=== PATIENT | female | born 1955 | race Caucasian/White ===

== ENCOUNTER 2019-01-26 04:46 | Observation (INO) | payer OTHER ==
[~2019-01-26] VITALS: Ht 165.1 cm; Wt 69.9 kg
[2019-01-26 04:56] VITALS: BP 149/63
[2019-01-26] MEDS ORDERED: COUMADIN 2 MG TA2 M1 PO (05:04)
[2019-01-26] MEDS ORDERED: COUMADIN 4 MG TA4 M1 PO (05:04)
[2019-01-26] MEDS ORDERED: CELEXA20 MG PO (05:05)
[2019-01-26] MEDS ORDERED: ATORVASTATIN CA40 MG PO (05:06)
[2019-01-26] MEDS ORDERED: KEPPRA750 MG PO (05:07)
[2019-01-26] MEDS ORDERED: ASPIR 8181 MG PO (05:07)
[2019-01-26] MEDS ORDERED: LOPRESSOR50 PO (05:07)
[2019-01-26] MEDS ORDERED: SYNTHROID125 MC1 PO (05:08)
[2019-01-26] MEDS ORDERED: FOSAMAX 70 MG T70 MG PO (05:09)
[2019-01-26 05:19] LABS: ABSOLUTE EOSINOPHILS 0.3 thou/uL (0.0-0.7); ABSOLUTE LYMPHOCYTES 1.1 thou/uL (0.8-5.3); ABSOLUTE MONOCYTES 0.3 thou/uL (0.0-1.2); ABSOLUTE NEUTROPHILS 3.1 thou/uL (1.6-8.1); BASOPHILS 0.9 %; HEMATOCRIT 37.9 % (37.0-47.0); HEMOGLOBIN 12.9 gm/dL (12.0-15.0); LYMPHOCYTES 22.2 %; MCH 32.6 pg (26.0-34.0); MCV 96.1 fL (80.0-100.0); MONOCYTES 5.8 %; MPV 7.9 fl. (7.2-11.1); NUCLEATED RBCS 0 /100WBC; PLATELET COUNT* 196 thou/uL (150-400); POLYS 64.1 %; RBC 3.94 mil/uL (4.20-5.00); RDW-CV 13.6 % (10.5-14.5); WBC 4.9 thou/uL (4.0-11.0)
[2019-01-26 05:30] LABS: INR 1.7; PROTIME 17.4 Seconds (9.20-11.50)
[2019-01-26 05:40] LABS: ANION GAP 9 mmol/L (7-16); BUN 22 mg/dL (7-18); CHLORIDE 106 mmol/L (98-107); CO2 27 mmol/L (21-32); CREATININE 0.7 mg/dL (0.6-1.3); GLUCOSE 102 mg/dL (70-99); POTASSIUM 3.6 mmol/L (3.5-5.1); SODIUM 142 mmol/L (136-145)
[2019-01-26 05:44] LABS: ALBUMIN 3.2 g/dL (3.4-5.0); ALKALINE PHOSPHATASE 69 U/L (46-116); MAGNESIUM 1.8 mg/dL (1.8-2.4); SGOT 18 U/L (15-37); SGPT 15 U/L (30-65); TOTAL BILIRUBIN 0.6 mg/dL (<0.1-1.0); TOTAL PROTEIN 7.1 g/dL (6.4-8.2); TROPONIN-I LEVEL <0.06 ng/mL (<0.06)
[2019-01-26 06:46] LABS: URINE BILIRUBIN NEGATIVE (Negative); URINE BLOOD 1+ (Negative); URINE CLARITY CLEAR; URINE COLOR YELLOW; URINE GLUCOSE-RANDOM NEGATIVE (Negative); URINE KETONES NEGATIVE (Negative); URINE LEUKOCYTES TRACE (Negative); URINE NITRITE POSITIVE (Negative); URINE PROTEIN TRACE (Negative); URINE SPECIFIC GRAVITY >= 1.030 (1.005-1.030); URINE UROBILINOGEN 0.2 E.U./dl (0.2-1.0)
[2019-01-26 06:54] LABS: BACTERIA >30 Many /HPF (None Seen); CASTS None Seen /LPF (None Seen); CRYSTALS None Seen /LPF (None Seen); MUCUS 0-3 Light strn/LPF (None Seen); SQUAMOUS 0-3 Few /LPF (0-3); URINE RBC 0-2 Rare /HPF (0-2); URINE WBC 6-15 Few /HPF (0-5)
--- NOTE | 2019-01-26 09:52 | NUR ---
UPON GIVING THE PATIENT HER HOME MEDICATIONS, SHE STATES THAT SHE TAKES THE CITALOPRAM, ATORVASTATIN AND ASPIRIN AT NIGHT. PILLS ARE IN ZIPLOCK BAG AND PLACED ON PT'S CLIPBOARD.
[2019-01-26 11:00] VITALS: BP 151/73
[2019-01-26 15:43] VITALS: BP 136/74
[2019-01-26 16:30] VITALS: BP 119/63
[2019-01-26 16:35] VITALS: BP 136/74
[2019-01-26] MEDS ORDERED: CALCIUM 500 +1 EAC5 PO (17:14)
--- NOTE | 2019-01-26 18:09 | NUR ---
PT ADMITTED TO ROOM 226 VIA CART FROM ED AT APPROXIMATELY 1630 WITH BRADYCARDIA AND RIGHT ARM PAIN. PT ORIENTED TO ROOM AND CALL LIGHT. ADMISSION ASSESSMENT AND HISTORY COMPLETED. REFER TO CHARTING. MEDICARE AND FALL AGREEMENT SIGNED AND PLACED IN CHART. SEPSIS SCREENING COMPLETED- PT NEGATIVE. PT A&0X4, COMPLAINS OF PAIN TO RIGHT ARM- THUMB AND ELBOW SPECIFICALLY. TREATED WITH PRN TYLENOL WITH PARTIAL RELIEF. PT TRACING SB ON THE RN IMCU. RATE IN THE LOW 50'S. ON RA SAT UPPER 90'S. PT UP WITH 1 ASSIST AND CANE TO BATHROOM. LUE NOTED TO BE FLACCID FROM PREVIOUS STROKE. LLE WEAKNESS NOTED. PT SIGNIFICANT OTHER AT BEDSIDE. PT AND SIGNIFICANT OTHER ARE FROM [place] AND IN [facility] VISITING FOR A GRADUATION. MEDICATIONS PER NOV. PT REPOSITIONS SELF WITH REMINDERS. HOURLY ROUNDING OBSERVED. BED IN LOW POSITION. BED ALARM IN PLACE. FALL PRECAUTIONS IN PLACE. CALL LIGHT WITHIN REACH. WILL CONTINUE PLAN OF CARE.
[2019-01-26 19:50] VITALS: BP 126/67
[2019-01-27] VITALS: BP 129/64
[2019-01-27 04:00] VITALS: BP 125/68
[2019-01-27 04:54] LABS: CALCIUM 9.1 mg/dL (8.5-10.1); CREATININE 0.8 mg/dL (0.6-1.3); POTASSIUM 3.8 mmol/L (3.5-5.1)
[2019-01-27 04:57] LABS: ABSOLUTE EOSINOPHILS 0.3 thou/uL (0.0-0.7); ABSOLUTE LYMPHOCYTES 1.1 thou/uL (0.8-5.3); ABSOLUTE MONOCYTES 0.2 thou/uL (0.0-1.2); ABSOLUTE NEUTROPHILS 2.8 thou/uL (1.6-8.1); BASOPHILS 0.9 %; EOSINOPHILS 6.3 %; HEMATOCRIT 38.1 % (37.0-47.0); MCH 32.8 pg (26.0-34.0); MCHC 34.1 g/dL (28.0-37.0); MONOCYTES 5.1 %; MPV 8.4 fl. (7.2-11.1); NUCLEATED RBCS 0 /100WBC; PLATELET COUNT* 194 thou/uL (150-400); POLYS 63.7 %; RBC 3.97 mil/uL (4.20-5.00); RDW-CV 13.6 % (10.5-14.5); WBC 4.4 thou/uL (4.0-11.0)
--- NOTE | 2019-01-27 06:37 | NUR ---
VITALS WNL. SEE MAR. SEE CHARTING. FALL PRECAUTIONS IN PLACE. HOURLY ROUNDING FOR SAFETY.
[2019-01-27 07:30] VITALS: BP 133/59
--- NOTE | 2019-01-27 11:15 | NUR ---
MET WITH PT AND S/O PRADEEP TO DISCUSS HOME SITUATION/DC PLANNING. PT AND PRADEEP LIVE IN [place], THEY WERE HERE VISITING FOR A GRADUATION, PLANNED TO GO HOME TODAY. PT HAS HX OF STROKE. PRADEEP ASSISTS HER WITH IADLS, PT IS ABLE TO DO MOST OF HER OWN ADLS, NEEDS HELP WITH TYING SHOES AND BUTTONS. PT USES CANE, TOILET RISER, WALK IN SHOWER AND SHOWER BENCH. SHE PLANS TO RETURN HOME WITH PRADEEP BY CAR TO [place] AT [place]. HE IS DPOA. WILL FOLLOW
[2019-01-27 11:22] VITALS: BP 132/78
--- NOTE | 2019-01-27 12:40 | EKG ---
[place] [address] ELECTROCARDIOGRAM REPORT Name: DARIO DE DIOS Room: [address] ADM IN [facility]#: [id number] Admission: 01/26/19 Attend Phys: Solomon Siddiqui MD Discharge: Date of : 57 Report #: [id number] THIS REPORT FOR: //name// [facility] ED Test Date: 2019-01-26 Test Time: 05:30:31 Pat Name: DARIO WYMAN Department: Room: [facility] Gender: F Wheelman: JAVIER : 1955 Requested By: Selin Landaverde Order Number: [id number] MD: Russ Hughes Measurements Intervals [place] Rate: 43 P: 39 NC: 200 QRS: -4 QRSD: 109 T: QT: 532 QTc: 450 Interpretive Statements Sinus bradycardia Probable left atrial enlargement Anteroseptal infarct, age indeterminate No previous ECG available for comparison Electronically Signed On 01-27-2019 12:40:21 CDT by Russ Hughes [email or web address] <ELECTRONICALLY SIGNED> By: Russ Hughes MD, [facility] 01/27/19 1240 Russ Hughes MD, [facility] /EPI
[2019-01-27 15:55] VITALS: BP 118/70
[2019-01-27 16:35] VITALS: BP 118/70
--- NOTE | 2019-01-27 16:56 | 2DMMODE ---
[place] [address] 2 D/M-MODE ECHOCARDIOGRAM Name: DARIO DE DIOS Room: [address] IN [facility]#: [id number] Admission: 01/26/19 Attend Phys: Solomon Siddiqui, Discharge: Date of : 57 Date of Service: 01/27/19 1656 Report #: [id number] THIS REPORT FOR: //name// APPROVED REPORT Study performed: 01/27/2019 14:03:20 EXAM: Comprehensive 2D, Doppler, and color-flow Echocardiogram Patient Location: In-Patient Room #: [facility] Status: routine BSA: 1.77 HR: 65 bpm BP: 132/78 mmHg Rhythm: NSR Other Information Study Quality: Good Indications Bradycardia CAD 2D Dimensions IVSd: 8.49 (7-11mm) LVOT Diam: 22.01 (18-24mm) LVDd: 49.19 mm PWd: 7.36 (7-11mm) Ascending Ao: 32.81 (22-36mm) LVDs: 34.07 (25-40mm) Aortic Root: 29.68 mm Volumes Left Atrial Volume (Systole) LA ESV Index: 14.40 mL/m2 Aortic Valve AoV Peak Dexter.: 1.52 m/s AO Peak Gr.: 9.19 mmHg LVOT Max P.79 mmHg AO Mean Gr.: 5.12 mmHg LVOT Mean P.84 mmHg LVOT Max V: 0.67 m/s AO V2 VTI: 27.63 cm LVOT Mean V: 0.42 m/s CRUZ (VTI): 2.24 cm2 LVOT V1 VTI: 16.24 cm Mitral Valve E/A Ratio: 0.78 MV Decel. Time: 213.41 [place] [address] 2 D/M-MODE ECHOCARDIOGRAM Name: DARIO DE DIOS Room: [address] IN ..#: [id number] Admission: 01/26/19 Attend Phys: Solomon Siddiqui, Discharge: Date of : 57 Date of Service: 01/27/19 1656 Report #: [id number] MV E Max Dexter.: 0.49 m/s MV PHT: 61.89 ms MVA (PHT): 3.55 cm2 TDI E/Lateral E': 4.90 E/Medial E': 6.13 Medial E' Dexter.: 0.08 m/s Lateral E' Dexter.: 0.10 m/s Pulmonary Valve PV Peak Dexter.: 0.85 m/s PV Peak Gr.: 2.87 mmHg Left Ventricle The left ventricle is normal size. There is mild septal hypokinesis. There is normal left ventricular wall thickness. Left ventricular systolic function is normal. The left ventricular ejection fraction is within the normal range. LVEF is 55%. Grade I - abnormal relaxation pattern. Right Ventricle The right ventricle is normal size. The right ventricular systolic function is normal. Atria The left atrium size is normal. The right atrium size is normal. Aortic Valve Mild aortic valve sclerosis. No aortic regurgitation is present. There is no aortic valvular stenosis. Mitral Valve The mitral valve is normal in structure. Trace mitral regurgitation. No evidence of mitral valve stenosis. Tricuspid Valve The tricuspid valve is normal in structure. Unable to assess PA pressure. Trace tricuspid regurgitation. Pulmonic Valve The pulmonary valve is normal in structure. Mild pulmonic regurgitation. Great Vessels The aortic root is normal in size. IVC is normal in size and collapses >50% [place] [address] 2 D/M-MODE ECHOCARDIOGRAM Name: DARIO DE DIOS Room: [address] IN [facility]#: [id number] Admission: 01/26/19 Attend Phys: Solomon Siddiqui, Discharge: Date of : 57 Date of Service: 01/27/19 1656 Report #: [id number] Pericardium There is no pericardial effusion. <Conclusion> The left ventricle is normal size. There is normal left ventricular wall thickness. Left ventricular systolic function is normal. The left ventricular ejection fraction is within the normal range. LVEF is 55%. Grade I - abnormal relaxation pattern. The right ventricle is normal size. The left atrium size is normal. Mild aortic valve sclerosis. No aortic regurgitation is present. There is no aortic valvular stenosis. The mitral valve is normal in structure. Trace mitral regurgitation. The tricuspid valve is normal in structure. IVC is normal in size and collapses >50% with inspiration. There is no pericardial effusion. There is mild septal hypokinesis. <ELECTRONICALLY SIGNED> By: Russ Hughes MD, FACC 01/27/19 1656 [id number] Russ Hughes MD, FACC /INF
== END 2019-01-27 18:15 | disposition home or self-care (01) ==
LOC: M.ERS 04:46 → M.2W 06:44 → M.TBA-ER 06:44 → M.2W 06:44
PROVIDERS: Emergency Medicine; ADMIT Internal Medicine
DX: R00.1 Bradycardia, unspecified (principal); M79.621 Pain in right upper arm; I25.10 Atherosclerotic heart disease of native coronary artery without angina pectoris; F17.210 Nicotine dependence, cigarettes, uncomplicated; M62.422 Contracture of muscle, left upper arm; I25.2 Old myocardial infarction; Z87.42 Personal history of other diseases of the female genital tract; Z79.899 Other long term (current) drug therapy